=== PATIENT | male | born 1935 | race Caucasian/White ===

== ENCOUNTER 2016-12-07 12:45 | Outpatient (CLI) | payer MEDICARE, BC ==
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
== END 2016-12-07 12:46 | disposition home or self-care (01) ==
LOC: DI 12:45
PROVIDERS: ATTEND Family Medicine
DX: R10.9 Unspecified abdominal pain (principal); R14.0 Abdominal distension (gaseous); M99.09 Segmental and somatic dysfunction of abdomen and other regions; K63.89 Other specified diseases of intestine
CPT/HCPCS: 74176

== ENCOUNTER 2016-12-12 10:15 | Outpatient (CLI) | payer MEDICARE, BC ==
[2016-12-12 11:10] LABS: BASOPHILS % (AUTO) 0.4 %; EOSINOPHILS % (AUTO) 0.2 %; HCT - HEMATOCRIT 43.4 % (42.0-52.0); HGB - HEMOGLOBIN 14.7 g/dL (14.0-18.0); LYMPHOCYTES % (AUTO) 16.8 %; MEAN CORPUSCULAR HEMOGLOBIN 30.8 pg (27.0-31.0); MEAN CORPUSCULAR HGB CONC 33.8 g/dL (32.0-36.0); MEAN PLATELET VOLUME 7.8 fL (7.4-11.4); MONOCYTES # (AUTO) 0.6 10^3/uL (0.0-1.0); MONOCYTES % (AUTO) 9.6 %; NEUTROPHILS # (AUTO) 4.2 10^3/uL (1.5-6.6); NUCLEATED RED BLOOD CELLS AUTO 0.1 /100WBC; RED BLOOD COUNT 4.77 10^6/uL (4.70-6.10); RED CELL DISTRIBUTION WIDTH 14.7 % (12.0-15.0); UNCORRECTED WHITE BLOOD COUNT 5.8 x10^3/uL; WHITE BLOOD COUNT 5.8 x10^3/uL (4.8-10.8)
[2016-12-12 11:33] LABS: ALBUMIN/GLOBULIN RATIO 1.1 (1.0-2.2); BILIRUBIN,TOTAL 1.1 mg/dL (0.2-1.0); CALCIUM 9.1 mg/dL (8.5-10.3); POTASSIUM 4.3 mmol/L (3.5-5.0); TOTAL PROTEIN 6.5 g/dL (6.7-8.2)
== END 2016-12-12 10:16 | disposition home or self-care (01) ==
LOC: LAB 10:15
PROVIDERS: ATTEND Surgery
DX: K63.89 Other specified diseases of intestine (principal)
CPT/HCPCS: 36415; 80053; 82378; 84134; 85025

== ENCOUNTER 2016-12-12 11:27 | Outpatient (CLI) | payer MEDICARE, BC ==
[2016-12-12] MEDS ORDERED: IOPAMIDOL-300 100 ML VIAL IVP ONE (13:55)
--- NOTE | 2016-12-13 08:22 | CT Report ---
CT CHEST WITH CONTRAST: 12/12/2016 CLINICAL INDICATION: Colon mass. TECHNIQUE: Axial CT images of the chest were obtained with 100 mL Isovue-300 intravenously. No prev ious chest CT is available for comparison. In accordance with CT protocol optimization, one or more of the following dose reduction techniques w ere utilized for this exam: automated exposure control, adjustment of mA and/or KV based on patient size, or use of iterative reconstructive technique. FINDINGS: The heart and great vessels demonstrate mild atherosclerotic calcification. No hilar or m ediastinal lymphadenopathy is present. The lungs are clear. No effusion or pneumothorax is present. Osseous structures demonstrate degenerative changes. IMPRESSION: NO EVIDENCE OF THORACIC METASTATIC DISEASE. JOB #: [id number] EXT JOB #:[id number]
--- NOTE | 2016-12-13 08:25 | CT Report ---
CT ABDOMEN AND PELVIS WITH CONTRAST: 12/12/2016 CLINICAL INDICATION: Colon mass. COMPARISON: 12/07/2016 TECHNIQUE: Axial CT images of the abdomen and pelvis were obtained with 100 mL Isovue-300 intravenou sly as well as oral contrast. In accordance with CT protocol optimization, one or more of the following dose reduction techniques w ere utilized for this exam: automated exposure control, adjustment of mA and/or KV based on patient size, or use of iterative reconstructive technique. FINDINGS: There is a small cyst in the posterior right lobe of the liver. The spleen, pancreas, kid neys, and adrenal glands appear unremarkable. The patient is status post cholecystectomy. There is marked dilatation of small bowel loops as well as the ascending and transverse colon, terminating at the mass at the splenic flexure. Trace ascites is seen adjacent to the inferior tip of the liver. N o definite abdominal adenopathy is seen. Pelvis: The distal colon is decompressed. Small bowel dilatation is seen in the pelvis. Colonic di verticulosis is present, without CT evidence of diverticulitis. No pelvic adenopathy or free fluid i s present. Osseous structures demonstrate degenerative changes. IMPRESSION: PERSISTENT COLONIC OBSTRUCTION. NO DEFINITE ADENOPATHY. SMALL CYST IN THE LIVER. JOB #: [id number] EXT JOB #:[id number]
== END 2016-12-12 11:28 | disposition home or self-care (01) ==
LOC: DI 11:27
PROVIDERS: ATTEND Surgery
DX: K63.89 Other specified diseases of intestine (principal); K76.89 Other specified diseases of liver
CPT/HCPCS: 36415; 71260; 74177; 80053; 82378; 84134; 85025; Q9967

== ENCOUNTER 2016-12-31 08:18 | Outpatient (CLI) | payer MEDICARE, BC ==
[2016-12-31 09:09] LABS: BASOPHILS # (AUTO) 0.1 10^3/uL (0.0-0.1); BASOPHILS % (AUTO) 0.9 %; EOSINOPHILS # (AUTO) 0.2 10^3/uL (0.0-0.7); EOSINOPHILS % (AUTO) 2.3 %; HCT - HEMATOCRIT 30.6 % (42.0-52.0); HGB - HEMOGLOBIN 10.5 g/dL (14.0-18.0); LYMPHOCYTES # (AUTO) 1.1 10^3/uL (1.5-3.5); LYMPHOCYTES % (AUTO) 15.8 %; MEAN CORPUSCULAR HEMOGLOBIN 31.8 pg (27.0-31.0); MEAN CORPUSCULAR HGB CONC 34.2 g/dL (32.0-36.0); MEAN CORPUSCULAR VOLUME 92.9 fL (80.0-94.0); MEAN PLATELET VOLUME 7.2 fL (7.4-11.4); MONOCYTES # (AUTO) 0.5 10^3/uL (0.0-1.0); MONOCYTES % (AUTO) 6.7 %; NEUTROPHILS # (AUTO) 5.1 10^3/uL (1.5-6.6); NEUTROPHILS % (AUTO) 74.3 %; NUCLEATED RED BLOOD CELLS AUTO 0.1 /100WBC; RED BLOOD COUNT 3.29 10^6/uL (4.70-6.10); UNCORRECTED WHITE BLOOD COUNT 6.8 x10^3/uL; WHITE BLOOD COUNT 6.8 x10^3/uL (4.8-10.8)
[2016-12-31 09:23] LABS: ALBUMIN/GLOBULIN RATIO 0.7 (1.0-2.2); BILIRUBIN,TOTAL 0.5 mg/dL (0.2-1.0); CALCIUM 8.6 mg/dL (8.5-10.3); CREATININE 0.7 mg/dL (0.6-1.2); POTASSIUM 4.6 mmol/L (3.5-5.0); TOTAL PROTEIN 6.2 g/dL (6.7-8.2)
== END 2016-12-31 08:19 | disposition home or self-care (01) ==
LOC: LAB 08:18
PROVIDERS: ATTEND Surgery
DX: K63.89 Other specified diseases of intestine (principal)
CPT/HCPCS: 36415; 80053; 84134; 85025

== ENCOUNTER 2019-04-30 16:27 | Outpatient (CLI) | payer OTHER, MEDICARE, BC | END 2019-04-30 16:28 | disposition critical access hospital (66) | LOC: EMS 16:27 | PROVIDERS: ATTEND Surgery | DX: R07.81 Pleurodynia (principal); S61.412A Laceration without foreign body of left hand, initial encounter; V49.40XA Driver injured in collision with unspecified motor vehicles in traffic accident, initial encounter; Y92.414 Local residential or business street as the place of occurrence of the external cause | CPT/HCPCS: A0425; A0429 ==

== ENCOUNTER 2019-04-30 16:32 | Emergency (ER) | payer OTHER, MEDICARE, BC ==
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
[2019-04-30 17:06] LABS: BASOPHILS # (AUTO) 0.1 10^3/uL (0.0-0.1); BASOPHILS % (AUTO) 0.7 %; EOSINOPHILS # (AUTO) 0.1 10^3/uL (0.0-0.7); HGB - HEMOGLOBIN 14.9 g/dL (14.0-18.0); LYMPHOCYTES # (AUTO) 1.5 10^3/uL (1.5-3.5); LYMPHOCYTES % (AUTO) 21.1 %; MEAN CORPUSCULAR HEMOGLOBIN 31.5 pg (27.0-31.0); MEAN CORPUSCULAR HGB CONC 33.2 g/dL (32.0-36.0); MEAN CORPUSCULAR VOLUME 94.9 fL (80.0-94.0); MEAN PLATELET VOLUME 10.1 fL (7.4-11.4); MONOCYTES # (AUTO) 0.5 10^3/uL (0.0-1.0); MONOCYTES % (AUTO) 7.2 %; NEUTROPHILS # (AUTO) 4.8 10^3/uL (1.5-6.6); NEUTROPHILS % (AUTO) 68.2 %; PLT - PLATELET COUNT 227 10^3/uL (130-450); RED BLOOD COUNT 4.73 10^6/uL (4.70-6.10); RED CELL DISTRIBUTION WIDTH 13.9 % (12.0-15.0); WHITE BLOOD COUNT 7.1 x10^3/uL (4.8-10.8)
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
[2019-04-30 17:08] LABS: INR 1.1 (0.8-1.2); PT - PROTHROMBIN TIME 12.5 secs (9.9-12.6)
[2019-04-30 17:11] LABS: ALBUMIN 4.4 g/dL (3.2-5.5); ALBUMIN/GLOBULIN RATIO 1.3 (1.0-2.2); ALKALINE PHOSPHATASE 69 IU/L (42-121); ALT ALANINE AMINOTRANSFERASE 16 IU/L (10-60); AST ASPARTATE AMINOTRANSFERASE 25 IU/L (10-42); BILIRUBIN,TOTAL 0.6 mg/dL (0.2-1.0); BUN - BLOOD UREA NITROGEN 16 mg/dL (6-20); CALCIUM 9.5 mg/dL (8.5-10.3); CARBON DIOXIDE - CO2 26 mmol/L (21-32); CHLORIDE 103 mmol/L (101-111); GFR - MDRD 72 (>89); GLUCOSE 111 mg/dL (70-100); LIPASE 30 U/L (22-51); SODIUM 140 mmol/L (135-145); TOTAL PROTEIN 7.9 g/dL (6.7-8.2)
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
[2019-04-30 18:01] LABS: BILIRUBIN,URINE NEGATIVE (NEGATIVE); GLUCOSE, URINE (UA) NEGATIVE (NEGATIVE); KETONES,URINE (UA) NEGATIVE (NEGATIVE); LEUKOCYTE ESTERASE, URINE TRACE (NEGATIVE); NITRITE,URINE POSITIVE (NEGATIVE); OCCULT BLOOD,URINE TRACE-LYSE (NEGATIVE); PROTEIN,URINE TRACE mg/dL (NEGATIVE); UROBILINOGEN,URINE 0.2 (NORMAL) E.U./dL (NORMAL)
[2019-04-30 18:04] LABS: CLARITY,URINE HAZY (CLEAR)
[2019-04-30 18:10] LABS: BACTERIA,URINE Many /HPF (None Seen); RBC,URINE 0-5 /HPF (0-5); SQUAMOUS EPITHELIAL CELL,UR RARE Squamous (<= Few)
[2019-04-30] MEDS ORDERED: TETANUS/DIPHTHERIA/PERTUSSIS 0.5 ML SYRINGE IM ONE (18:14)
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
[2019-04-30] MEDS ORDERED: IOVERSOL 320 100 ML VIAL IVP ONE (18:31)
[2019-04-30] MEDS ORDERED: cephALEXin 250 MG CAPSULE PO STA (21:14)
[2019-04-30] MEDS ORDERED: SULFAMETH/TRIMETH DS 800/160 MG TABLET PO STA (21:22)
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
[2019-04-30 21:34] VITALS: BP 185/105
== END 2019-04-30 21:57 | disposition home or self-care (01) ==
LOC: EDUNIT# → ED 16:32
DX: S06.9X9A Unspecified intracranial injury with loss of consciousness of unspecified duration, initial encounter (principal); R07.81 Pleurodynia; S61.412A Laceration without foreign body of left hand, initial encounter; M79.641 Pain in right hand; M54.2 Cervicalgia; V43.52XA Car driver injured in collision with other type car in traffic accident, initial encounter; Y92.410 Unspecified street and highway as the place of occurrence of the external cause; Z23 Encounter for immunization; N30.00 Acute cystitis without hematuria; I71.2 Thoracic aortic aneurysm, without rupture; M25.78 Osteophyte, vertebrae; I11.0 Hypertensive heart disease with heart failure; I50.9 Heart failure, unspecified; Z85.038 Personal history of other malignant neoplasm of large intestine
CPT/HCPCS: 36415; 70450; 71045; 71250; 72125; 80053; 80320; 81001; 83690; 85025; 85610; 87086; 87181; 90471; 90715; 99284; A9270; 81003

== ENCOUNTER 2019-05-08 07:47 | Emergency (ER) | payer MEDICARE, BC ==
[2019-05-08] MEDS ORDERED: fentaNYL 100 MCG/2 ML VIAL IVP STA (08:18)
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
[2019-05-08] MEDS ORDERED: IOVERSOL 320 100 ML VIAL IVP ONE ×2 (08:45→10:22)
[2019-05-08 08:52] LABS: BILIRUBIN,URINE NEGATIVE (NEGATIVE); GLUCOSE, URINE (UA) NEGATIVE (NEGATIVE); KETONES,URINE (UA) 15 mg/dL (NEGATIVE); LEUKOCYTE ESTERASE, URINE NEGATIVE (NEGATIVE); NITRITE,URINE NEGATIVE (NEGATIVE); OCCULT BLOOD,URINE SMALL (NEGATIVE); PH,URINE 5.5 PH (5.0-7.5); PROTEIN,URINE NEGATIVE (NEGATIVE); UROBILINOGEN,URINE 0.2 (NORMAL) E.U./dL (NORMAL)
[2019-05-08 08:58] LABS: CLARITY,URINE CLEAR (CLEAR)
[2019-05-08 09:08] LABS: BASOPHILS # (AUTO) 0.1 10^3/uL (0.0-0.1); BASOPHILS % (AUTO) 0.6 %; EOSINOPHILS # (AUTO) 0.1 10^3/uL (0.0-0.7); EOSINOPHILS % (AUTO) 1.2 %; HGB - HEMOGLOBIN 15.4 g/dL (14.0-18.0); LYMPHOCYTES % (AUTO) 11.2 %; MEAN CORPUSCULAR HEMOGLOBIN 32.2 pg (27.0-31.0); MEAN CORPUSCULAR HGB CONC 34.8 g/dL (32.0-36.0); MEAN CORPUSCULAR VOLUME 92.5 fL (80.0-94.0); MEAN PLATELET VOLUME 10.4 fL (7.4-11.4); MONOCYTES # (AUTO) 0.7 10^3/uL (0.0-1.0); MONOCYTES % (AUTO) 8.3 %; NEUTROPHILS # (AUTO) 6.6 10^3/uL (1.5-6.6); NEUTROPHILS % (AUTO) 78.1 %; PLT - PLATELET COUNT 260 10^3/uL (130-450); RED BLOOD COUNT 4.78 10^6/uL (4.70-6.10); RED CELL DISTRIBUTION WIDTH 13.9 % (12.0-15.0); WHITE BLOOD COUNT 8.5 x10^3/uL (4.8-10.8)
[2019-05-08 09:11] LABS: RBC,URINE 0-5 /HPF (0-5)
[2019-05-08 09:12] LABS: INR 1.2 (0.8-1.2); PT - PROTHROMBIN TIME 13.1 secs (9.9-12.6)
[2019-05-08 09:12] LABS: BACTERIA,URINE Rare /HPF (None Seen); MUCUS,URINE Few Strands; SQUAMOUS EPITHELIAL CELL,UR NONE SEEN (<= Few)
[2019-05-08 09:17] LABS: ALBUMIN 4.1 g/dL (3.2-5.5); ALBUMIN/GLOBULIN RATIO 1.2 (1.0-2.2); BILIRUBIN,TOTAL 1.5 mg/dL (0.2-1.0); CALCIUM 9.2 mg/dL (8.5-10.3); TOTAL PROTEIN 7.5 g/dL (6.7-8.2)
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
[2019-05-08] MEDS ORDERED: CYCLOBENZAPRINE 10 MG TABLET PO STA (11:30)
[2019-05-08 11:44] VITALS: BP 166/98
== END 2019-05-08 11:46 | disposition home or self-care (01) ==
LOC: ED 07:47
DX: M54.5 Low back pain (principal); R00.0 Tachycardia, unspecified; I11.0 Hypertensive heart disease with heart failure; I50.9 Heart failure, unspecified; I77.810 Thoracic aortic ectasia
CPT/HCPCS: 36415; 71275; 74174; 80053; 81001; 83690; 85025; 85610; 96374; 99284; A9270; Q9967; 87086

== ENCOUNTER 2021-01-10 14:12 | Outpatient (CLI) | payer MEDICARE, BC | END 2021-01-10 14:13 | disposition EMS.NT | LOC: EMS 14:12 | DX: Z03.89 Encounter for observation for other suspected diseases and conditions ruled out (principal) ==